=== PATIENT | female | born 1970 ===

== ENCOUNTER 2020-07-23 19:22 | Inpatient (IN) | payer MEDICAID ==
[~2020-07-23] VITALS: Ht 157.5 cm; Wt 60.8 kg
[2020-07-23] MEDS ORDERED: THIAMINE 100 MG in SODIUM CHLORIDE 0.9% 50 ML IVPB ONE (20:00)
[2020-07-23] MEDS ORDERED: SODIUM CHLORIDE FLUSH 10ML SYR IVF ONE (20:00)
[2020-07-23] MEDS ORDERED: LORazepam 2 MG/ML, 1ML IVPush PRN (20:00)
[2020-07-23] MEDS ORDERED: ONDANSETRON 2MG/ML, 2ML IVPush ONE (20:00)
[2020-07-23] MEDS ORDERED: MAGNESIUM SULFATE 1 GM, THIAMINE 100 MG, FOLIC ACID 1 MG, MVI ADULT 10 ML in SODIUM CHL... IV ONE (20:00)
[2020-07-23 20:07] LABS: BASOPHILS % (AUTO) 0 % (0-1); EOSINOPHILS % (AUTO) 4 % (1-7); LYMPHOCYTES % (AUTO) 18 % (22-44); MEAN CORPUSCULAR HEMOGLOBIN 36.1 pg (27.0-34.8); MEAN CORPUSCULAR HGB CONC 34.4 g/dL (32.4-35.8); MEAN PLATELET VOLUME 8.3 fL (7.4-10.4); MONOCYTES % (AUTO) 7 % (2-9); NEUTROPHILS % (AUTO) 72 % (42-75); PLATELET COUNT 144 x10^3/uL (130-400); RED BLOOD COUNT 2.91 x10^6/uL (3.82-5.3); RED CELL DISTRIBUTION WIDTH 17.2 % (9.6-15.2)
[2020-07-23] MEDS ORDERED: ONDANSETRON 2MG/ML, 2ML ONE (20:07)
--- NOTE | 2020-07-23 20:17 | NUR ---
task rn: pt straight cath'ed for urine and specimen then walked to lab. pt tolerated well.
[2020-07-23 20:18] LABS: ALANINE AMINOTRANSFERASE 56 U/L (12-78); ALBUMIN 2.8 g/dL (3.4-5.0); ANION GAP 11 mmol/L (5-15); CALCIUM 9.2 mg/dL (8.5-10.1); CHLORIDE 105 mmol/L (98-107); CREATININE 1.79 mg/dL (0.55-1.02); INTERNATIONAL NORMALIZED RATIO 1.11 (0.93-1.1); PROTHROMBIN TIME 11.9 Seconds (9.6-11.5)
--- NOTE | 2020-07-23 20:18 | NUR ---
ORDERED IVF FROM PHARMACY AT THIS TIME
[2020-07-23 20:22] LABS: ALKALINE PHOSPHATASE 381 U/L (45-117); BILIRUBIN,TOTAL 1.4 mg/dL (0.2-1.0); TOTAL PROTEIN 8.5 g/dL (6.4-8.2)
[2020-07-23 20:24] LABS: MICROSCOPIC AUTO
[2020-07-23] MEDS ORDERED: POTASSIUM CHLORIDE 40 MEQ in SODIUM CHLORIDE 0.9% 500 ML IV ONE (20:30)
[2020-07-23 20:35] LABS: AMPHETAMINE SCREEN, URINE Positive (Negative); BARBITURATE SCREEN, URINE Negative (Negative); BENZODIAZEPINE SCREEN, URINE Negative (Negative); CANNABINOID SCREEN, URINE Negative (Negative); COCAINE SCREEN, URINE Negative (Negative); METHADONE SCREEN, URINE Negative (Negative)
[2020-07-23 20:36] LABS: OPIATE SCREEN, URINE Negative (Negative)
[2020-07-23] MEDS ORDERED: LORazepam 2 MG/ML, 1ML ONE (21:03)
[2020-07-23] MEDS ORDERED: SODIUM CHLORIDE FLUSH 10ML SYR IVF PRN (21:30)
--- NOTE | 2020-07-23 21:35 | NUR ---
CALLED PHARMACY ABOUT REQUESTED POTASSIUM BAG. STATED PHARMACIST TO CHECK IT AND WILL SEND IT OVER
--- NOTE | 2020-07-23 21:51 | NUR ---
[email or web address] (friend-ok to give info): [phone]
[2020-07-23] MEDS ORDERED: AMOX-291 PO (21:53)
[2020-07-23] MEDS ORDERED: AMLO-211 PO (21:53)
[2020-07-23] MEDS ORDERED: ACETAMINOPHEN 325 MG TABLET PO PRN (22:00)
[2020-07-23] MEDS ORDERED: BISACODYL 10 MG SUPP PR PRN (22:00)
[2020-07-23] MEDS ORDERED: CHLORDIAZEPOXIDE 25 MG CAPSULE PO PRN (22:00)
[2020-07-23] MEDS ORDERED: ONDANSETRON 2MG/ML, 2ML IVPush PRN (22:00)
[2020-07-23] MEDS: POTASSIUM CHLORIDE 20 MEQ, MAGNESIUM SULFATE 1 GM, THIAMINE 200 MG, FOLIC ACID 1 MG, MV... IV SCH (22:00)
[2020-07-23 22:17] LABS: TROPONIN I < 0.015 ng/mL (0.000-0.045)
--- NOTE | 2020-07-23 22:26 | NUR ---
REPORT TO MASSIMO HAWK
[2020-07-23] MEDS: HEPARIN 5,000 UNITS/ML, 1ML SQ SCH (23:18)
[2020-07-23] MEDS: CEFTRIAXONE 1,000 MG in DEXTROSE 5% 50 ML IVPB SCH (23:18)
[2020-07-24 00:16] VITALS: BP 133/83
[2020-07-24] MEDS: LORazepam 2 MG/ML, 1ML IVPush PRN ×2 (03:24→09:48)
[2020-07-24 04:31] LABS: ANION GAP 9 mmol/L (5-15); CALCIUM 8.6 mg/dL (8.5-10.1); CHLORIDE 109 mmol/L (98-107)
[2020-07-24 04:34] LABS: TROPONIN I < 0.015 ng/mL (0.000-0.045)
[2020-07-24] MEDS: HEPARIN 5,000 UNITS/ML, 1ML SQ SCH ×3 (05:08→21:53)
[2020-07-24 05:43] LABS: BASOPHILS % (AUTO) 0 % (0-1); EOSINOPHILS % (AUTO) 4 % (1-7); LYMPHOCYTES % (AUTO) 17 % (22-44); MEAN CORPUSCULAR HEMOGLOBIN 36.4 pg (27.0-34.8); MEAN CORPUSCULAR HGB CONC 34.7 g/dL (32.4-35.8); MEAN PLATELET VOLUME 8.5 fL (7.4-10.4); MONOCYTES % (AUTO) 5 % (2-9); NEUTROPHILS % (AUTO) 73 % (42-75); PLATELET COUNT 134 x10^3/uL (130-400); RED BLOOD COUNT 2.93 x10^6/uL (3.82-5.3); RED CELL DISTRIBUTION WIDTH 17.1 % (9.6-15.2)
[2020-07-24 08:01] VITALS: BP 130/79
[2020-07-24] MEDS: MAGNESIUM HYDROXIDE 8%, 30ML UDC PO SCH (09:46)
[2020-07-24] MEDS ORDERED: LORazepam 2 MG/ML, 1ML IV PRN ×6 (11:00)
[2020-07-24] MEDS ORDERED: LORazepam 0.5MG TABLET PO PRN (11:00)
[2020-07-24] MEDS ORDERED: LORazepam 1MG TABLET PO PRN ×4 (11:00)
[2020-07-24 13:41] VITALS: BP 121/83
[2020-07-24 19:05] VITALS: BP 116/78
[2020-07-24] MEDS: CEFTRIAXONE 1,000 MG in DEXTROSE 5% 50 ML IVPB SCH (21:53)
[2020-07-24] MEDS: POTASSIUM CHLORIDE 20 MEQ, MAGNESIUM SULFATE 1 GM, THIAMINE 200 MG, FOLIC ACID 1 MG, MV... IV SCH (22:08)
[2020-07-25 00:47] VITALS: BP 109/72
[2020-07-25 04:11] VITALS: BP 121/74
[2020-07-25 04:58] LABS: BASOPHILS % (AUTO) 1 % (0-1); EOSINOPHILS % (AUTO) 3 % (1-7); LYMPHOCYTES % (AUTO) 17 % (22-44); MEAN CORPUSCULAR HEMOGLOBIN 36.3 pg (27.0-34.8); MEAN CORPUSCULAR HGB CONC 33.9 g/dL (32.4-35.8); MEAN PLATELET VOLUME 8.8 fL (7.4-10.4); MONOCYTES % (AUTO) 6 % (2-9); NEUTROPHILS % (AUTO) 73 % (42-75); PLATELET COUNT 102 x10^3/uL (130-400); RED BLOOD COUNT 3.04 x10^6/uL (3.82-5.3); RED CELL DISTRIBUTION WIDTH 17.1 % (9.6-15.2)
[2020-07-25 05:08] LABS: ALANINE AMINOTRANSFERASE 44 U/L (12-78); ALBUMIN 2.5 g/dL (3.4-5.0); ANION GAP 8 mmol/L (5-15); CALCIUM 8.6 mg/dL (8.5-10.1); CHLORIDE 112 mmol/L (98-107); CREATININE 1.46 mg/dL (0.55-1.02)
[2020-07-25 05:11] LABS: ALKALINE PHOSPHATASE 331 U/L (45-117); BILIRUBIN,TOTAL 0.7 mg/dL (0.2-1.0); TOTAL PROTEIN 7.9 g/dL (6.4-8.2)
[2020-07-25] MEDS: HEPARIN 5,000 UNITS/ML, 1ML SQ SCH ×3 (05:22→20:39)
[2020-07-25 07:43] VITALS: BP 125/84
[2020-07-25] MEDS: MAGNESIUM HYDROXIDE 8%, 30ML UDC PO SCH (09:00)
[2020-07-25] MEDS ORDERED: POTASSIUM PHOSPHATE 44 MEQ in SODIUM CHLORIDE 0.9% 500 ML IV ONE (10:30)
[2020-07-25 12:45] VITALS: BP 133/85
[2020-07-25 18:26] VITALS: BP 125/80
[2020-07-25] MEDS: METOCLOPRAMIDE 5 MG/ML, 2ML IVPush SCH (18:30)
[2020-07-25] MEDS: POLYETHYLENE GLYCOL 17 GM PACKET PO SCH (20:38)
[2020-07-25] MEDS: POTASSIUM CHLORIDE 20 MEQ, MAGNESIUM SULFATE 1 GM, THIAMINE 200 MG, FOLIC ACID 1 MG, MV... IV SCH (23:10)
[2020-07-26] MEDS: METOCLOPRAMIDE 5 MG/ML, 2ML IVPush SCH ×3 (00:04→12:30)
[2020-07-26 00:55] LABS: HCG UR SG 1.009 (1.003-1.030)
[2020-07-26 01:24] VITALS: BP 118/74
[2020-07-26] MEDS: HEPARIN 5,000 UNITS/ML, 1ML SQ SCH ×2 (05:23→13:00)
[2020-07-26 07:19] VITALS: BP 110/70
[2020-07-26] MEDS: MAGNESIUM HYDROXIDE 8%, 30ML UDC PO SCH (07:21)
[2020-07-26] MEDS: POLYETHYLENE GLYCOL 17 GM PACKET PO SCH (07:28)
[2020-07-26] MEDS ORDERED: POTA20TA14 PO (13:10)
[2020-07-26] MEDS ORDERED: CHLO25CA9 PO (13:10)
[2020-07-26] MEDS ORDERED: METOCLOPRAMIDE 5 MG/ML, 2ML IVPush SCH (14:00)
[2020-07-26 14:23] VITALS: BP 123/85
== END 2020-07-26 14:55 | disposition home or self-care (01) | DRG 312 ==
LOC: ED 21:40 → EDIP 21:41 → 4WST 22:55 → DCLOUNGE 07-26 14:48
PROVIDERS: ADMIT Family Medicine; ATTEND Internal Medicine
PROC: 0T9B70Z Drainage of Bladder with Drainage Device, Via Natural or Artificial Opening (ICD-10-PCS; principal; 2020-07-23)
DX: R55 Syncope and collapse (principal); F10.139 Alcohol abuse with withdrawal, unspecified; D64.9 Anemia, unspecified; D75.89 Other specified diseases of blood and blood-forming organs; E78.5 Hyperlipidemia, unspecified; E87.6 Hypokalemia; F15.10 Other stimulant abuse, uncomplicated; G40.909 Epilepsy, unspecified, not intractable, without status epilepticus; E66.01 Morbid (severe) obesity due to excess calories; Y90.9 Presence of alcohol in blood, level not specified; I10 Essential (primary) hypertension; K59.00 Constipation, unspecified; K70.10 Alcoholic hepatitis without ascites; Z87.11 Personal history of peptic ulcer disease; Z79.899 Other long term (current) drug therapy; Z88.8 Allergy status to other drugs, medicaments and biological substances; Z68.24 Body mass index [BMI] 24.0-24.9, adult
CPT/HCPCS: 36415; 71045; 80048; 80053; 80307; 80320; 81001; 81025; 82607; 83690; 83735; 83880; 84100; 84132; 84484; 85025; 85610; 85730; 87086; 93005; 93880; 96374; 96375; G0378; J0696; J1644; J2405; J3411; J3475; J3480; G0480; J2060; J2765; J7030; J7040

== ENCOUNTER 2020-07-28 16:09 | Inpatient (IN) | payer MEDICAID ==
[~2020-07-28] VITALS: Ht 157.5 cm; Wt 116.6 kg
[~2020-07-28 16:09] MED LIST: AMLO-211 PO; AMOX-291 PO; CHLO25CA9 PO; POTA20TA14 PO
--- NOTE | 2020-07-28 16:21 | NUR ---
ERP AT NOW.
[2020-07-28] MEDS ORDERED: METOCLOPRAMIDE 5 MG/ML, 2ML ONE (16:28)
[2020-07-28] MEDS ORDERED: OCTREOTIDE 500 MCG in SODIUM CHLORIDE 0.9% 99 ML IV PRN (16:30)
[2020-07-28] MEDS ORDERED: PANTOPRAZOLE 80 MG in SODIUM CHLORIDE 0.9% 100 ML IV SCH (16:30)
[2020-07-28] MEDS ORDERED: METOCLOPRAMIDE 5 MG/ML, 2ML IVPush ONE (16:30)
[2020-07-28] MEDS ORDERED: METRONIDAZOLE PMX 500MG/100ML 100 ML IV ONE (17:00)
[2020-07-28] MEDS ORDERED: METRONIDAZOLE PMX 500MG/100ML 100 ML ONE (17:09)
[2020-07-28 17:32] LABS: MEAN CORPUSCULAR HEMOGLOBIN 36.7 pg (27.0-34.8); MEAN CORPUSCULAR HGB CONC 34.3 g/dL (32.4-35.8); PLATELET COUNT 197 x10^3/uL (130-400); RED BLOOD COUNT 2.28 x10^6/uL (3.82-5.3); RED CELL DISTRIBUTION WIDTH 17.3 % (9.6-15.2)
[2020-07-28 17:42] LABS: ALANINE AMINOTRANSFERASE 37 U/L (12-78); ALBUMIN 2.4 g/dL (3.4-5.0); ANION GAP 14 mmol/L (5-15); CALCIUM 9.1 mg/dL (8.5-10.1); CHLORIDE 109 mmol/L (98-107); CREATININE 1.52 mg/dL (0.55-1.02)
[2020-07-28 17:43] LABS: INTERNATIONAL NORMALIZED RATIO 1.18 (0.93-1.1); PROTHROMBIN TIME 12.6 Seconds (9.6-11.5)
[2020-07-28 17:45] LABS: ALKALINE PHOSPHATASE 241 U/L (45-117); BILIRUBIN,TOTAL 0.6 mg/dL (0.2-1.0); TOTAL PROTEIN 7.2 g/dL (6.4-8.2)
[2020-07-28 17:52] LABS: BANDS%(MANUAL) 3 % (0-7); EOS% (MANUAL) 4 % (1-7); LYMPH#(MANUAL) 3.07 x10^3/uL (1-3.4); LYMPHS% (MANUAL) 31 % (22-44); MONOS% (MANUAL) 4 % (2-9); SEG#(MANUAL) 5.74 x10^3/uL (1.8-6.8); SEGS% (MANUAL) 58 % (42-75)
[2020-07-28 17:53] LABS: <PLATELET ESTIMATE> ADEQUATE; <PLT MORPHOLOGY> NORMAL PLT MORPH; ANISOCYTOSIS 1+; HYPOCHROMIA 1+
[2020-07-28] MEDS ORDERED: SODIUM CHLORIDE 0.9% 1,000 ML IV ONE (18:30)
--- NOTE | 2020-07-28 19:22 | NUR ---
ERP AT BS TO ATTEMPT EJ INSERTION WITH US.
[2020-07-28] MEDS ORDERED: LORazepam 2 MG/ML, 1ML IVPush ONE (19:30)
[2020-07-28] MEDS ORDERED: hydrALAzine 20 MG/ML, 1ML IVPush PRN (19:30)
[2020-07-28] MEDS ORDERED: DOCUSATE 100 MG CAPSULE PO PRN (19:30)
[2020-07-28] MEDS ORDERED: PROMETHAZINE 25 MG/ML, 1ML IM PRN (19:30)
--- NOTE | 2020-07-28 19:33 | NUR ---
PT UP TO BSC TO VOID. ERP TO PLACE CENTRAL LINE D/T LACK OF IV ACCESS.
[2020-07-28] MEDS ORDERED: LORazepam 2 MG/ML, 1ML ONE (19:52)
--- NOTE | 2020-07-28 19:58 | NUR ---
ERP AT BS FOR CENTRAL LINE INSERTION.
--- NOTE | 2020-07-28 20:17 | NUR ---
CENTRAL LINE PLACED BY DR. MALONE TO R IJ. PT PRE-MEDICATED WITH ATIVAN, TOLERATED WELL. PT RESTING NOW, NO S/S OF DISTRESS. CXR ORDERED. UPDATE PROVIDED TO PT'S MOTHER ASTER MACEDO, .
[2020-07-28] MEDS ORDERED: LORazepam 1MG TABLET PO PRN ×4 (20:30)
[2020-07-28] MEDS ORDERED: LORazepam 2 MG/ML, 1ML IV PRN ×5 (20:30)
[2020-07-28] MEDS ORDERED: POTASSIUM CHLORIDE 40 MEQ in SODIUM CHLORIDE 0.9% 500 ML IV ONE (20:30)
[2020-07-28] MEDS ORDERED: LORazepam 0.5MG TABLET PO PRN (20:30)
--- NOTE | 2020-07-28 20:31 | NUR ---
CXR DONE AT BS TO CONFIRM CENTRAL LINE PLACEMENT. PLACEMENT CONFIRMED BY DR. MALONE.
[2020-07-28] MEDS: OCTREOTIDE 500 MCG in SODIUM CHLORIDE 0.9% 99 ML IV PRN (20:34)
[2020-07-28 21:15] VITALS: BP 127/85
[2020-07-28 21:25] VITALS: BP 127/85
[2020-07-28] MEDS ORDERED: LITH300C PO (21:59)
[2020-07-28] MEDS ORDERED: lactulose (22:00)
[2020-07-28] MEDS: THIAMINE 200 MG, MVI ADULT 10 ML, FOLIC ACID 1 MG in D5%-0.9% NACL 1,000 ML IV SCH (22:36)
[2020-07-29 00:13] VITALS: BP 124/84
[2020-07-29] MEDS: METRONIDAZOLE PMX 500MG/100ML 100 ML IV SCH ×3 (03:10→20:12)
[2020-07-29] MEDS: OCTREOTIDE 500 MCG in SODIUM CHLORIDE 0.9% 99 ML IV PRN ×2 (03:50→20:12)
[2020-07-29 05:48] LABS: ALBUMIN 2.3 g/dL (3.4-5.0); ANION GAP 8 mmol/L (5-15); CALCIUM 8.7 mg/dL (8.5-10.1); CHLORIDE 112 mmol/L (98-107)
[2020-07-29 05:56] LABS: ALANINE AMINOTRANSFERASE 30 U/L (12-78); ALKALINE PHOSPHATASE 212 U/L (45-117); BILIRUBIN,TOTAL 0.7 mg/dL (0.2-1.0); CHOLESTEROL, TOTAL 166 mg/dL (140-239); CREATININE 1.53 mg/dL (0.55-1.02); HDL CHOL % 33 % (28-40); HDL CHOLESTEROL (DIRECT) 55 mg/dL (40-60); LDL CHOLESTEROL,CALCULATED 60 mg/dL (54-169); LDL/HDL RATIO 1.1 (0.5-3.0); TOTAL PROTEIN 6.6 g/dL (6.4-8.2); TRIGLYCERIDES 253 mg/dL (50-200); VLDL CHOLESTEROL 51 mg/dL (0-25)
[2020-07-29 06:17] VITALS: BP 131/82
[2020-07-29] MEDS ORDERED: POTASSIUM CHLORIDE 20 MEQ in SODIUM CHLORIDE 0.9% 250 ML IV ONE (08:00)
[2020-07-29] MEDS ORDERED: SODIUM CHLORIDE 0.45% 1,000 ML IV SCH (09:30)
[2020-07-29] MEDS ORDERED: CHLORHEXIDINE 15 ML UDC ONE (10:07)
[2020-07-29] MEDS ORDERED: FENTANYL PF 100 MCG/2ML ONE ×2 (10:57→12:03)
[2020-07-29] MEDS ORDERED: MIDAZOLAM 1 MG/ML, 2ML ONE (10:57)
[2020-07-29] MEDS ORDERED: SUCCINYLCHOLINE 20 MG/ML, 10ML ONE (11:00)
[2020-07-29] MEDS ORDERED: ONDANSETRON 2MG/ML, 2ML ONE (11:00)
[2020-07-29] MEDS ORDERED: PROPOFOL 10 MG/ML, 20ML ONE (11:00)
[2020-07-29] MEDS ORDERED: ROCURONIUM 10 MG/ML,10ML ONE (11:00)
[2020-07-29] MEDS ORDERED: PHENYLEPHRINE 10 MG/ML ONE (11:00)
[2020-07-29] MEDS ORDERED: EPHEDRINE 50 MG/ML, 1ML ONE (11:00)
[2020-07-29] MEDS ORDERED: METOCLOPRAMIDE 5 MG/ML, 2ML IVPush PRN (11:30)
[2020-07-29] MEDS ORDERED: FENTANYL PF 100 MCG/2ML IV PRN (11:30)
[2020-07-29] MEDS ORDERED: PROMETHAZINE 25 MG/ML, 1ML IVPush PRN (11:30)
[2020-07-29] MEDS ORDERED: OXYcodone 5 MG/5 ML ORAL.SOL UDC PO PRN (11:30)
[2020-07-29] MEDS ORDERED: EPHEDRINE 50 MG/ML, 1ML IVPush PRN (11:30)
[2020-07-29] MEDS ORDERED: METOPROLOL 1 MG/ML, 5ML IV PRN (11:30)
[2020-07-29] MEDS ORDERED: LORazepam 2 MG/ML, 1ML IVPush PRN (11:30)
[2020-07-29] MEDS ORDERED: hydrALAzine 20 MG/ML, 1ML IV PRN (11:30)
[2020-07-29] MEDS ORDERED: ACETAMINOPHEN 325 MG TABLET PO PRN (11:30)
[2020-07-29] MEDS ORDERED: LABETALOL 5MG/ML, 20ML IV PRN (11:30)
[2020-07-29] MEDS ORDERED: HALOPERIDOL 5 MG/ML IV PRN (11:30)
[2020-07-29] MEDS ORDERED: METOCLOPRAMIDE 5 MG/ML, 2ML ONE (11:52)
[2020-07-29 12:30] VITALS: BP 138/84
[2020-07-29] MEDS: CEFTRIAXONE 2 GM in DEXTROSE 5% 50 ML IVPB SCH (13:56)
[2020-07-29] MEDS: PANTOPRAZOLE 40 MG IV IVPush SCH (13:56)
[2020-07-29] MEDS ORDERED: POTASSIUM CHLORIDE 20 MEQ in SODIUM CHLORIDE 0.45% 1,000 ML IV SCH (16:00)
[2020-07-29] MEDS ORDERED: POTASSIUM CHLORIDE PMX 100 ML IV ONE (16:00)
[2020-07-29] MEDS ORDERED: PANTOPRAZOLE 80 MG in SODIUM CHLORIDE 0.9% 100 ML IV SCH (16:30)
[2020-07-29] MEDS: OXYcodone IR 5MG TABLET PO PRN (17:06)
[2020-07-29] MEDS: ONDANSETRON 2MG/ML, 2ML IVPush PRN (19:14)
[2020-07-29 19:19] VITALS: BP 143/80
[2020-07-29] MEDS: morphine SULFATE 10 MG/ML, 1ML IVPush PRN ×2 (19:45→22:34)
[2020-07-29] MEDS: THIAMINE 200 MG, MVI ADULT 10 ML, FOLIC ACID 1 MG in D5%-0.9% NACL 1,000 ML IV SCH (21:40)
[2020-07-29] MEDS ORDERED: SODIUM CHLORIDE 0.9% 250 ML IV SCH (23:30)
[2020-07-29 23:50] VITALS: BP 145/86
[2020-07-30] VITALS (9 sets, daily range): BP systolic 116–159; BP diastolic 76–87
[2020-07-30] MEDS: PANTOPRAZOLE 40 MG IV IVPush SCH ×2 (00:34→11:33)
[2020-07-30] MEDS: METRONIDAZOLE PMX 500MG/100ML 100 ML IV SCH ×3 (02:16→19:55)
[2020-07-30] MEDS: morphine SULFATE 10 MG/ML, 1ML IVPush PRN ×2 (02:16→05:21)
[2020-07-30 04:50] LABS: BASOPHILS % (AUTO) 0 % (0-1); EOSINOPHILS % (AUTO) 4 % (1-7); LYMPHOCYTES % (AUTO) 26 % (22-44); MEAN CORPUSCULAR HEMOGLOBIN 35.1 pg (27.0-34.8); MEAN CORPUSCULAR HGB CONC 33.9 g/dL (32.4-35.8); MEAN PLATELET VOLUME 7.9 fL (7.4-10.4); MONOCYTES % (AUTO) 8 % (2-9); NEUTROPHILS % (AUTO) 61 % (42-75); PLATELET COUNT 129 x10^3/uL (130-400); RED CELL DISTRIBUTION WIDTH 20.2 % (9.6-15.2)
[2020-07-30 04:51] LABS: CALCIUM 9.1 mg/dL (8.5-10.1); CHLORIDE 110 mmol/L (98-107)
[2020-07-30 04:57] LABS: ALANINE AMINOTRANSFERASE 24 U/L (12-78); ALBUMIN 2.4 g/dL (3.4-5.0); ALKALINE PHOSPHATASE 202 U/L (45-117); ANION GAP 6 mmol/L (5-15); BILIRUBIN,TOTAL 0.7 mg/dL (0.2-1.0); CREATININE 1.52 mg/dL (0.55-1.02); TOTAL PROTEIN 6.8 g/dL (6.4-8.2)
[2020-07-30] MEDS: LEVOTHYROXINE 100 MCG TABLET PO SCH (05:21)
[2020-07-30] MEDS: ONDANSETRON 2MG/ML, 2ML IVPush PRN (05:48)
[2020-07-30] MEDS ORDERED: POTASSIUM CHLORIDE 20 MEQ PACKET PO ONE (08:00)
[2020-07-30] MEDS: AMLODIPINE 10 MG TAB PO SCH (09:17)
[2020-07-30] MEDS: LACTULOSE 20 GM/30 ML UDC PO SCH ×2 (09:17→20:27)
[2020-07-30] MEDS: OXYcodone IR 5MG TABLET PO PRN ×2 (09:18→20:25)
[2020-07-30] MEDS: CEFTRIAXONE 2 GM in DEXTROSE 5% 50 ML IVPB SCH (13:41)
[2020-07-30] MEDS: DIPHENHYDRAMINE 25 MG CAPSULE PO PRN (16:23)
[2020-07-30] MEDS: THIAMINE 200 MG, MVI ADULT 10 ML, FOLIC ACID 1 MG in D5%-0.9% NACL 1,000 ML IV SCH (22:33)
[2020-07-31] MEDS: PANTOPRAZOLE 40 MG IV IVPush SCH ×2 (00:16→14:26)
[2020-07-31] MEDS: ONDANSETRON 2MG/ML, 2ML IVPush PRN ×3 (00:28→22:30)
[2020-07-31] MEDS: OXYcodone IR 5MG TABLET PO PRN ×3 (00:29→22:20)
[2020-07-31] MEDS: DIPHENHYDRAMINE 25 MG CAPSULE PO PRN (00:34)
[2020-07-31] MEDS: METRONIDAZOLE PMX 500MG/100ML 100 ML IV SCH ×3 (02:43→22:10)
[2020-07-31 03:39] VITALS: BP 133/87
[2020-07-31] MEDS: OCTREOTIDE 500 MCG in SODIUM CHLORIDE 0.9% 99 ML IV PRN (05:07)
[2020-07-31 05:42] LABS: BASOPHILS % (AUTO) 1 % (0-1); EOSINOPHILS % (AUTO) 5 % (1-7); LYMPHOCYTES % (AUTO) 23 % (22-44); MEAN CORPUSCULAR HEMOGLOBIN 35.2 pg (27.0-34.8); MEAN CORPUSCULAR HGB CONC 33.9 g/dL (32.4-35.8); MEAN PLATELET VOLUME 8.1 fL (7.4-10.4); MONOCYTES % (AUTO) 8 % (2-9); NEUTROPHILS % (AUTO) 63 % (42-75); PLATELET COUNT 118 x10^3/uL (130-400); RED CELL DISTRIBUTION WIDTH 20.2 % (9.6-15.2)
[2020-07-31 05:54] LABS: ALBUMIN 2.5 g/dL (3.4-5.0); ANION GAP 5 mmol/L (5-15); CALCIUM 8.3 mg/dL (8.5-10.1); CHLORIDE 111 mmol/L (98-107)
[2020-07-31 06:04] LABS: % IRON SATURATION 17 % (20-55); ALANINE AMINOTRANSFERASE 29 U/L (12-78); ALKALINE PHOSPHATASE 239 U/L (45-117); BILIRUBIN,TOTAL 0.4 mg/dL (0.2-1.0); CREATININE 1.48 mg/dL (0.55-1.02); IRON LEVEL 50 mcg/dL (50-170); TOTAL IRON BINDING CAPACITY 294 mcg/dL (250-450); TOTAL PROTEIN 7.1 g/dL (6.4-8.2)
[2020-07-31] MEDS: LEVOTHYROXINE 100 MCG TABLET PO SCH (06:25)
[2020-07-31 07:02] VITALS: BP 116/74
[2020-07-31] MEDS ORDERED: MAGNESIUM SULFATE PMX 2GM/50ML 50 ML IV ONE (08:00)
[2020-07-31] MEDS ORDERED: BISACODYL 10 MG SUPP ONE (08:29)
[2020-07-31] MEDS ORDERED: BISACODYL 10 MG SUPP PR PRN (08:30)
[2020-07-31] MEDS: LACTULOSE 20 GM/30 ML UDC PO SCH ×4 (08:33→20:20)
[2020-07-31] MEDS: POTASSIUM CHLORIDE 20 MEQ TAB.ER.PRT PO SCH ×2 (08:34→17:03)
[2020-07-31] MEDS: THIAMINE 100MG TABLET PO SCH ×2 (08:34→20:20)
[2020-07-31] MEDS: MULTIVITAMIN 1 TABLET PO SCH (08:35)
[2020-07-31] MEDS: FOLIC ACID 1 MG TABLET PO SCH (08:35)
[2020-07-31] MEDS: AMLODIPINE 10 MG TAB PO SCH (08:35)
[2020-07-31] MEDS: RIFAXIMIN 550 MG TABLET PO SCH ×2 (10:35→20:20)
[2020-07-31] MEDS ORDERED: OMNIPAQUE 350 MG/ML, 150 ML BOTTLE ONE (11:08)
[2020-07-31 13:15] VITALS: BP 124/77
[2020-07-31] MEDS: CEFTRIAXONE 2 GM in DEXTROSE 5% 50 ML IVPB SCH (14:08)
[2020-07-31] MEDS: POTASSIUM CHLORIDE 20 MEQ in SODIUM CHLORIDE 0.45% 1,000 ML IV SCH (14:09)
[2020-07-31] MEDS: ONDANSETRON ODT 4 MG PO PRN (17:03)
[2020-07-31 19:15] VITALS: BP 125/83
[2020-08-01] MEDS: POTASSIUM CHLORIDE 20 MEQ in SODIUM CHLORIDE 0.45% 1,000 ML IV SCH ×2 (00:23→10:39)
[2020-08-01 00:53] VITALS: BP 125/82
[2020-08-01] MEDS: PANTOPRAZOLE 40 MG IV IVPush SCH ×2 (03:23→13:53)
[2020-08-01] MEDS: OCTREOTIDE 500 MCG in SODIUM CHLORIDE 0.9% 99 ML IV PRN (04:02)
[2020-08-01 05:00] LABS: BASOPHILS % (AUTO) 1 % (0-1); EOSINOPHILS % (AUTO) 3 % (1-7); LYMPHOCYTES % (AUTO) 25 % (22-44); MEAN CORPUSCULAR HEMOGLOBIN 35.6 pg (27.0-34.8); MEAN CORPUSCULAR HGB CONC 34.2 g/dL (32.4-35.8); MEAN PLATELET VOLUME 8.4 fL (7.4-10.4); MONOCYTES % (AUTO) 6 % (2-9); NEUTROPHILS % (AUTO) 66 % (42-75); PLATELET COUNT 121 x10^3/uL (130-400); RED CELL DISTRIBUTION WIDTH 20.1 % (9.6-15.2)
[2020-08-01 05:07] LABS: ALANINE AMINOTRANSFERASE 28 U/L (12-78); ALBUMIN 2.4 g/dL (3.4-5.0); ANION GAP 6 mmol/L (5-15); CALCIUM 8.3 mg/dL (8.5-10.1); CHLORIDE 111 mmol/L (98-107); CREATININE 1.49 mg/dL (0.55-1.02)
[2020-08-01 05:09] LABS: ALKALINE PHOSPHATASE 221 U/L (45-117); BILIRUBIN,TOTAL 0.3 mg/dL (0.2-1.0); TOTAL PROTEIN 6.6 g/dL (6.4-8.2)
[2020-08-01] MEDS: LEVOTHYROXINE 100 MCG TABLET PO SCH (06:00)
[2020-08-01] MEDS: OXYcodone IR 5MG TABLET PO PRN ×3 (06:03→20:41)
[2020-08-01] MEDS: METRONIDAZOLE PMX 500MG/100ML 100 ML IV SCH ×3 (06:04→23:15)
[2020-08-01 06:39] VITALS: BP 115/70
[2020-08-01 08:46] VITALS: BP 126/80
[2020-08-01] MEDS: FOLIC ACID 1 MG TABLET PO SCH (08:49)
[2020-08-01] MEDS: MULTIVITAMIN 1 TABLET PO SCH (08:49)
[2020-08-01] MEDS: LACTULOSE 20 GM/30 ML UDC PO SCH ×3 (08:49→20:42)
[2020-08-01] MEDS: RIFAXIMIN 550 MG TABLET PO SCH ×2 (08:49→20:40)
[2020-08-01] MEDS: AMLODIPINE 10 MG TAB PO SCH (08:49)
[2020-08-01] MEDS: THIAMINE 100MG TABLET PO SCH ×2 (08:49→20:40)
[2020-08-01 12:25] VITALS: BP 125/72
[2020-08-01] MEDS: CEFTRIAXONE 2 GM in DEXTROSE 5% 50 ML IVPB SCH (13:10)
[2020-08-01] MEDS: ONDANSETRON ODT 4 MG PO PRN (13:19)
[2020-08-01 18:33] VITALS: BP 108/67
[2020-08-01 20:35] VITALS: BP 131/81
[2020-08-01] MEDS: ONDANSETRON 2MG/ML, 2ML IVPush PRN (20:41)
[2020-08-02 02:13] VITALS: BP 128/79
[2020-08-02] MEDS: PANTOPRAZOLE 40 MG IV IVPush SCH ×2 (02:35→14:01)
[2020-08-02 04:42] LABS: BASOPHILS % (AUTO) 0 % (0-1); EOSINOPHILS % (AUTO) 2 % (1-7); LYMPHOCYTES % (AUTO) 14 % (22-44); MEAN CORPUSCULAR HEMOGLOBIN 35.4 pg (27.0-34.8); MEAN CORPUSCULAR HGB CONC 34.1 g/dL (32.4-35.8); MEAN PLATELET VOLUME 8.8 fL (7.4-10.4); MONOCYTES % (AUTO) 6 % (2-9); NEUTROPHILS % (AUTO) 78 % (42-75); PLATELET COUNT 126 x10^3/uL (130-400); RED BLOOD COUNT 2.27 x10^6/uL (3.82-5.3); RED CELL DISTRIBUTION WIDTH 20.2 % (9.6-15.2)
[2020-08-02 04:52] LABS: ALBUMIN 2.5 g/dL (3.4-5.0); ANION GAP 6 mmol/L (5-15); CALCIUM 8.6 mg/dL (8.5-10.1); CHLORIDE 110 mmol/L (98-107)
[2020-08-02 04:55] LABS: ALANINE AMINOTRANSFERASE 28 U/L (12-78); ALKALINE PHOSPHATASE 234 U/L (45-117); BILIRUBIN,TOTAL 0.4 mg/dL (0.2-1.0); CREATININE 1.55 mg/dL (0.55-1.02); TOTAL PROTEIN 7.1 g/dL (6.4-8.2)
[2020-08-02] MEDS: METRONIDAZOLE PMX 500MG/100ML 100 ML IV SCH ×3 (06:23→21:47)
[2020-08-02] MEDS: LEVOTHYROXINE 100 MCG TABLET PO SCH (06:37)
[2020-08-02 07:07] VITALS: BP 116/76
[2020-08-02] MEDS: FOLIC ACID 1 MG TABLET PO SCH (08:03)
[2020-08-02] MEDS: RIFAXIMIN 550 MG TABLET PO SCH ×2 (08:03→21:47)
[2020-08-02] MEDS: AMLODIPINE 10 MG TAB PO SCH (08:04)
[2020-08-02] MEDS: MULTIVITAMIN 1 TABLET PO SCH (08:04)
[2020-08-02] MEDS: THIAMINE 100MG TABLET PO SCH ×2 (08:04→21:48)
[2020-08-02] MEDS: LACTULOSE 20 GM/30 ML UDC PO SCH ×3 (08:05→21:00)
[2020-08-02] MEDS: ONDANSETRON 2MG/ML, 2ML IVPush PRN ×2 (08:20→17:26)
[2020-08-02] MEDS: OXYcodone IR 5MG TABLET PO PRN ×3 (08:20→22:09)
[2020-08-02 12:10] VITALS: BP 104/61
[2020-08-02] MEDS: CEFTRIAXONE 2 GM in DEXTROSE 5% 50 ML IVPB SCH (12:58)
[2020-08-02 13:11] LABS: ANA SCREEN NEGATIVE (Negative)
[2020-08-02 20:28] VITALS: BP 116/74
[2020-08-02] MEDS: PANTOPRAZOLE 40MG TABLET PO SCH (21:48)
[2020-08-02] MEDS: ONDANSETRON ODT 4 MG PO PRN (22:10)
[2020-08-03 00:23] VITALS: BP 109/70
[2020-08-03] MEDS: LEVOTHYROXINE 100 MCG TABLET PO SCH (05:45)
[2020-08-03] MEDS: METRONIDAZOLE PMX 500MG/100ML 100 ML IV SCH (05:46)
[2020-08-03] MEDS ORDERED: PANTOPRAZOLE 40MG TABLET PO SCH (06:00)
[2020-08-03 06:24] VITALS: BP 108/67
[2020-08-03] MEDS: PANTOPRAZOLE 40MG TABLET PO SCH (07:13)
[2020-08-03] MEDS: LACTULOSE 20 GM/30 ML UDC PO SCH (09:31)
[2020-08-03] MEDS: RIFAXIMIN 550 MG TABLET PO SCH (09:32)
[2020-08-03] MEDS: FOLIC ACID 1 MG TABLET PO SCH (09:32)
[2020-08-03] MEDS: AMLODIPINE 10 MG TAB PO SCH (09:32)
[2020-08-03] MEDS: MULTIVITAMIN 1 TABLET PO SCH (09:32)
[2020-08-03] MEDS: THIAMINE 100MG TABLET PO SCH (09:33)
[2020-08-03] MEDS: ONDANSETRON 2MG/ML, 2ML IVPush PRN (09:37)
[2020-08-03] MEDS: OXYcodone IR 5MG TABLET PO PRN (10:47)
[2020-08-03 12:04] VITALS: BP 127/85
[2020-08-03] MEDS ORDERED: RIFA550T4 PO ×2 (12:29)
[2020-08-03] MEDS ORDERED: LACT20SO13 PO ×2 (12:29)
[2020-08-03] MEDS ORDERED: PANT40TA6 PO ×2 (12:29)
[2020-08-03] MEDS ORDERED: LEVO100T PO ×2 (12:29)
[2020-08-03] MEDS: CEFTRIAXONE 2 GM in DEXTROSE 5% 50 ML IVPB SCH (13:00)
[2020-08-03] MEDS ORDERED: SPIRONOLACTONE 50 MG TABLET PO SCH (13:00)
[2020-08-03] MEDS ORDERED: FUROSEMIDE 20 MG TABLET PO SCH (13:00)
[2020-08-04] MEDS ORDERED: AMLO-211 PO (09:49)
[2020-08-04] MEDS ORDERED: LEVO100T PO (09:49)
[2020-08-04] MEDS ORDERED: LACT20SO13 PO (09:49)
[2020-08-04] MEDS ORDERED: RIFA550T4 PO (09:49)
[2020-08-04] MEDS ORDERED: PANT40TA6 PO (09:49)
== END 2020-08-03 15:15 | disposition home or self-care (01) | DRG 432 ==
LOC: ED 17:26 → EDIP 18:00 → 4WST 21:07 → DCLOUNGE 08-03 14:58
PROVIDERS: ADMIT Internal Medicine; ATTEND Family Medicine
PROC: 02HV33Z Insertion of Infusion Device into Superior Vena Cava, Percutaneous Approach (ICD-10-PCS; 2020-07-28)
PROC: B548ZZA Ultrasonography of Superior Vena Cava, Guidance (ICD-10-PCS; 2020-07-28)
PROC: 30233N1 Transfusion of Nonautologous Red Blood Cells into Peripheral Vein, Percutaneous Approach (ICD-10-PCS; 2020-07-29)
PROC: 06L38CZ Occlusion of Esophageal Vein with Extraluminal Device, Via Natural or Artificial Opening Endoscopic (ICD-10-PCS; principal; 2020-07-29 11:30)
DX: K70.31 Alcoholic cirrhosis of liver with ascites (principal); I85.11 Secondary esophageal varices with bleeding; K85.90 Acute pancreatitis without necrosis or infection, unspecified; D62 Acute posthemorrhagic anemia; Z68.42 Body mass index [BMI] 45.0-49.9, adult; K76.6 Portal hypertension; N17.9 Acute kidney failure, unspecified; E03.9 Hypothyroidism, unspecified; E66.01 Morbid (severe) obesity due to excess calories; E78.5 Hyperlipidemia, unspecified; E83.42 Hypomagnesemia; E87.6 Hypokalemia; E87.70 Fluid overload, unspecified; F15.10 Other stimulant abuse, uncomplicated; Z20.822 Contact with and (suspected) exposure to COVID-19; Z88.8 Allergy status to other drugs, medicaments and biological substances; G25.81 Restless legs syndrome; G40.909 Epilepsy, unspecified, not intractable, without status epilepticus; I12.9 Hypertensive chronic kidney disease with stage 1 through stage 4 chronic kidney disease, or unspecified chronic kidney disease; K25.9 Gastric ulcer, unspecified as acute or chronic, without hemorrhage or perforation; K31.89 Other diseases of stomach and duodenum; K52.9 Noninfective gastroenteritis and colitis, unspecified; N18.9 Chronic kidney disease, unspecified; R13.10 Dysphagia, unspecified; R73.03 Prediabetes; Z79.899 Other long term (current) drug therapy
CPT/HCPCS: 36415; 96365; 99285; J7042; 71045; 74177; 76705; 80053; 80061; 80074; 82105; 82140; 82390; 82728; 83036; 83516; 83540; 83550; 83690; 83735; 84100; 84443; 85014; 85018; 85025; 85610; 85730; 86038; 86850; 86900; 86923; 87635; 93005; G0378; J0696; J2250; J2354; J2405; J2550; J2704; J3010; J3411; J3480; Q0162; Q9967; C9113; J0330; J2060; J2270; J2370; J2765; J3475; J7030; J7040; P9016; Q0163